=== PATIENT | female | born 1990 | race Caucasian/White ===

== ENCOUNTER 2018-04-11 11:47 | Emergency (ER) | payer BC ==
[2018-04-11] MEDS ORDERED: Albuterol/Ipratropium NEB.SOL* Albuterol 2.5 MG/Ipratropium 0.5 MG 3 ML INH ONE ×2 (11:54→12:56)
[2018-04-11] MEDS ORDERED: NS 0.9% 1000 ML* 1,000 ML IV ONE (12:06)
[2018-04-11] MEDS ORDERED: methylPREDNISolone 125 MG* 2 ML VIAL IV ONE (12:06)
--- NOTE | 2018-04-11 12:08 | ED ---
Shortness of Breath - HPI Summary HPI Summary: Patient is a 27 y/o F presenting to ED with asthma exacerbation, SOB and wheezing. Patient took her rescue inhaler this morning several times with no relief in Sx. It is noted that patient experiences more asthma exacerbation episodes in the winter, nothing else is noted to have aggravated asthma. Patient denies previous hospital admission for asthma, states she was at [facility] last in 2009 for asthma exacerbation episode, at which time she was given prednisone and steroids. She states that present episode is worse than her previous episodes, noting her inhaler typically relieves Sx. In the room, she denies chest pain, sore throat, N/V, congestion, chest pain, and possibility of . No cough. no recent URI PSHx of wisdom teeth removal, patient denies smoking cigarettes, substance usage but reports rare alcohol usage. On triage, pain is denied. Home medications and allergies are reviewed. - History of Current Complaint Chief Complaint: EDAsthma Time Seen by Provider: 04/11/18 11:54 Hx Obtained From: Patient Onset/Duration: Still Present Timing: Constant Current Severity: None - pain denied Dyspnea At: Rest Aggrevating Factors: Nothing Alleviating Factors: Nothing Associated Signs & Symptoms: Cough (Nonproductive), Wheezing - Allergy/Home Medications Allergies/Adverse Reactions: Allergies Allergy/AdvReac Type Severity Reaction Status Date / Time No Known Allergies Allergy Verified 04/11/18 11:52 PMH/Surg Hx/FS Hx/Imm Hx Previously Healthy: Yes Respiratory History: Reports: Hx Asthma Sensory History: Denies: Hx Legally Blind, Hx Deafness Opthamlomology History: Denies: Hx Legally Blind EENT History: Denies: Hx Deafness - Surgical History Surgery Procedure, Year, and Place: wisdom teeth removal Infectious Disease History: No Infectious Disease History: Denies: Traveled Outside the [place] in Last 30 Days - Family History Known Family History: Positive: Non-Contributory - Social History Occupation: Employed Full-time Lives: With Family Alcohol Use: Rare Substance Use Type: Reports: None Smoking Status (MU): Never Smoked Tobacco Review of Systems Positive: Fatigue Eyes: Negative ENT: Negative Negative: Sore Throat Negative: Chest Pain Positive: Shortness Of Breath, Other - wheezing reported, patient denies congestion Negative: Vomiting, Nausea All Other Systems Reviewed And Are Negative: Yes Physical Exam - Summary Physical Exam Summary: Vital Signs Reviewed: Yes A+Ox3, obvious increased WOB Eyes: Conjunctiva Clear, NITHYA. EOM intact and full ENT: Hearing grossly normal TM x 2 clear, mmoist, uvula midline, no exudate, no erythema Neck: Positive: Supple Respiratory: Positive: accessory muscle use, tight aeration throughout - scant exp wheeze, no cough, speaking short sentences Cardiovascular: RRR nl s1, s2 no m/r CBT <2 sec abd soft + BS nt/nd no guarding, no distension Musculoskeletal Exam: TOSCANO x 4 without difficulty Strength Intact, ROM Intact Neurological: Positive: Alert, + sensation throughout Psychological: Positive: Normal Response To Family Skin: Positive: no rash, no ecchymosis Triage Information Reviewed: Yes Vital Signs On Initial Exam: Initial Vitals Temp Pulse Resp BP Pulse Ox 97.2 F 78 16 140/109 100 04/11/18 11:49 04/11/18 11:49 04/11/18 11:49 04/11/18 11:49 04/11/18 11:49 Diagnostics - Vital Signs Vital Signs Temp Pulse Resp BP Pulse Ox 04/11/18 11:49 97.2 F 78 16 140/109 100 - Laboratory Lab Statement: Any lab studies that have been ordered have been reviewed, and results considered in the medical decision making process. - Radiology No standard instances Radiology Interpretation Completed By: Radiologist - Patient Name: RAFY SHELBY Medical Record#: [id number] Ordering Physician: Andrea Dominguez MD Acct.#: [id number] : 1990 Age: 27 Sex: F Location: EMERGENCY DEPARTMENT Exam Date: 04/11/18 1359 ADM Status: REG ER Order Information: CHEST PA & LAT 2 VWS Accession Number: [id number] CPT: 69096 HISTORY: asthma ex, slight ronchi left base s/p neb COMPARISONS: January 06, 2010 VIEWS: 4: Frontal dual-energy and lateral views of the chest. FINDINGS: CARDIOMEDIASTINAL SILHOUETTE: The cardiomediastinal silhouette is normal. KIM: The kim are normal. PLEURA: The costophrenic angles are sharp. No pleural abnormalities are noted. LUNG PARENCHYMA: The lungs are clear. ABDOMEN: The upper abdomen is clear. There is no subphrenic gas. BONES AND SOFT TISSUES: No bone or soft tissue abnormalities are noted. OTHER: None. IMPRESSION: NO ACTIVE CARDIOPULMONARY DISEASE. <Electronically signed by Amadou Rutledge MD in OV> 04/11/181417 Dictated By: Amadou Rutledge MD Dictated Date/Time: 04/11/181417 Transcribed Date/Time: 04/11/181417 Copy to: CC:Andrea Dominguez MD; Shante Negro MD Imaging - [facility] Imaging - [place] [facility] [address] [address] ph [phone]) ph ) ph ([phone]) This report is only to be considered final once signed by the Provider(s ) as displayed in the "<Electronically Signed by >" field (s). Absence of a signature indicates the report is in a draft status and still needs to be finalized. In the event this document was created by someone other than the signing Provider, the individual initiating the document will be listed in the "Entered by:" or "Dictated by:" appiah. 1 of 1 Re-Evaluation - Re-Evaluation First Eval Re-Evaluation Time: 12:18 Change: Improved Comment: Patient with improved aeration at this time, diffuse wheezing is noted. states feeling better. given solumedrol. will give second neb - pt on respiratory protocol - close monitoring and reassess Second Eval Re-Evaluation Time: 12:53 Comment: still feeling well. no accessory muscle use. exp wheeze. will repeat 2nd duoneb Third Eval Re-Evaluation Time: 13:57 Change: Improved Comment: Breathing is improved. feels well. slight rhonci right base. anticipate discharge. pred QD x 4 days. work note. pt has Albuterol refill to [facility]. Pt has aerochamber - inconsistently uses Course/Dx - Course Course Of Treatment: Patient presents to emergency department reporting an asthma exacerbation. Patient states over the last 24-hour she's been feeling more wheezy. Patient's been using her rescue inhaler with little improvement. Patient states she needed to get seen for this. Patient's never been Hospital. Last prednisone and exacerbation requiring even the ED was apparently 6 years ago. Patient states typically she has 3 or 4 episodes a year. Patient states usually an MDI helps. Patient states when or cold makes her symptoms worse. Patient has not recently been sick. Patient states she is not . On exam vital signs reveal tachypnea mild tachycardia and a patient with poor aeration. We'll give DuoNeb and IV cimetidine all with close reassessment. - Diagnoses Provider Diagnoses: Asthma exacerbation Discharge - Sign-Out/Discharge Documenting (check all that apply): Patient Departure - Discharge Plan Condition: Stable Disposition: HOME Prescriptions: predniSONE TAB* [Deltasone TAB*] 50 mg PO DAILY #4 tab Patient Education Materials: Asthma (ED) Forms: *Gen. Provider Communication, *Work Release Referrals: Shante Negro MD [Primary Care Provider] - Additional Instructions: - Take antibiotics as prednisone as prescribed until gone - Use your inhaler with the spacer - 2 puffs every 4 hours today and tomorrow, then every 4 hours as needed - take antibiotics as prescribed until gone -humidify the air in the room where you sleep - Contact your doctor to schedule a follow-up appointment this week. Contact your doctor or return with questions or concerns - Billing Disposition and Condition Condition: STABLE Disposition: Home - Attestation Statements Document Initiated by Nela: Yes Documenting Scribe: MARIA D ADAMS Provider For Whom Nela is Documenting (Include Credential): ANDREA DOMINGUEZ MD Scribe Attestation: MARIA D Posada , scribed for ANDREA DOMINGUEZ MD on 04/11/18 at 1425. Scribe Documentation Reviewed: Yes Provider Attestation: The documentation as recorded by the MARIA D vergara accurately reflects the service I personally performed and the decisions made by me, ANDREA DOMINGUEZ MD Status of Scribe Document: Viewed
[2018-04-11 14:52] VITALS: BP 146/96
== END 2018-04-11 14:41 | disposition home or self-care (01) ==
LOC: ED 11:47
DX: J45.901 Unspecified asthma with (acute) exacerbation (principal)
CPT/HCPCS: 71046; 96361; 96374; 96375; 99282; A9270-GY; J2930

== ENCOUNTER 2018-06-19 07:12 | Emergency (ER) | payer BC ==
[2018-06-19 07:26] VITALS: BP 129/86
--- NOTE | 2018-06-19 07:58 | UC ---
Complaint Female HPI - HPI Summary HPI Summary: 27-year-old woman 27-year-old woman comes in with a chief complaint of burning with urination urinary frequency and urgency for the last day and a half. Patient has had UTIs in the past she states this what it feels like. She's tried Azo which decreased the dysuria some but overall symptoms are getting worse. She does have some suprapubic discomfort especially with urination. Denies any flank pain or other abdominal pain. Her period is due soon she is on control pills and denies any concern of or STI. - History Of Current Complaint Chief Complaint: UCGU Stated Complaint: POSS UTI Time Seen by Provider: 06/19/18 07:47 Hx Last Menstrual Period: 05/22/18 Pain Intensity: 98 - Allergies/Home Medications Allergies/Adverse Reactions: Allergies Allergy/AdvReac Type Severity Reaction Status Date / Time No Known Allergies Allergy Verified 06/19/18 07:26 Home Medications: Home Medications Desogestrel-Ethinyl Estradiol [Isibloom 0.15-30 mg-Mcg] 1 tab PO DAILY WITH MEAL 06/19/18 [History Confirmed 06/19/18] PMH/Surg Hx/FS Hx/Imm Hx Previously Healthy: Yes - Surgical History Surgical History: None Surgery Procedure, Year, and Place: wisdom teeth removal - Family History Known Family History: Positive: Non-Contributory - Social History Alcohol Use: Occasionally Substance Use Type: None Smoking Status (MU): Never Smoked Tobacco Review of Systems All Other Systems Reviewed And Are Negative: Yes Constitutional: Positive: Negative Skin: Positive: Negative Eyes: Positive: Negative ENT: Positive: Negative Respiratory: Positive: Negative Cardiovascular: Positive: Negative Gastrointestinal: Positive: Negative Genitourinary: Positive: Dysuria, Frequency, Urgency. Negative: Vaginal/Penile Discharge Motor: Positive: Negative Neurovascular: Positive: Negative Musculoskeletal: Positive: Negative Neurological: Positive: Negative Psychological: Positive: Negative Is Patient Immunocompromised?: No Physical Exam Triage Information Reviewed: Yes Appearance: Well-Appearing, No Pain Distress, Well-Nourished Vital Signs: Initial Vital Signs Temp 98.5 F 06/19/18 07:21 Pulse 82 06/19/18 07:21 Resp 18 06/19/18 07:21 BP 129/86 06/19/18 07:21 Pulse Ox 98 02/25/19 07:21 Vital Signs Reviewed: Yes Eye Exam: Normal Eyes: Positive: Conjunctiva Clear Neck exam: Normal Respiratory: Positive: Lungs clear, Normal breath sounds, No respiratory distress Cardiovascular: Positive: RRR Abdomen Description: Positive: Nontender, Soft. Negative: CVA Tenderness (R), CVA Tenderness (L) Musculoskeletal Exam: Normal Musculoskeletal: Positive: Strength Intact, ROM Intact Neurological Exam: Normal Neurological: Positive: Alert, Muscle Tone Normal Psychological Exam: Normal Psychological: Positive: Age Appropriate Behavior Skin Exam: Normal Complaint Female Dx - Differential Dx/Diagnosis Provider Diagnosis: UTI (urinary tract infection) Discharge - Sign-Out/Discharge Documenting (check all that apply): Patient Departure All imaging exams completed and their final reports reviewed: No Studies - Discharge Plan Condition: Stable Disposition: HOME Prescriptions: Cephalexin CAP* [Keflex CAP*] 500 mg PO TID #21 cap Patient Education Materials: Urinary Tract Infection in Women (ED) Referrals: Shante Negro MD [Primary Care Provider] - Additional Instructions: FOLLOW UP WITH YOUR DOCTOR IF NOT COMPLETELY IMPROVED. GET RECHECKED FOR ANY WORSENING OF YOUR CONDITION OR QUESTIONS OR CONCERNS. - Billing Disposition and Condition Condition: STABLE Disposition: Home
--- NOTE | 2018-06-21 17:01 | UC ---
- Progress Note Progress Note: 06/21/2018 Urine culture positive for E.Coli Pt Rx Keflex PO. However, Final sensitivity result resistant to Keflex, ampoicillin, Bactrim , Augmentin and Tetracycline. Please call back patient and notify her of results and advise to stop Keflex PO. New Rx for Ciprofloxacin was sent to pharmacy. Thank you Cyndee Morley PA-C Course/Dx - Diagnoses Provider Diagnoses: UTI (urinary tract infection) Discharge - Sign-Out/Discharge Documenting (check all that apply): Patient Departure - d/c home All imaging exams completed and their final reports reviewed: No Studies - Discharge Plan Condition: Stable Disposition: HOME Prescriptions: Cephalexin CAP* [Keflex CAP*] 500 mg PO TID #21 cap Ciprofloxacin TAB* [Cipro 500 MG TAB*] 500 mg PO BID #14 tab Patient Education Materials: Urinary Tract Infection in Women (ED) Referrals: Shante Negro MD [Primary Care Provider] - Additional Instructions: FOLLOW UP WITH YOUR DOCTOR IF NOT COMPLETELY IMPROVED. GET RECHECKED FOR ANY WORSENING OF YOUR CONDITION OR QUESTIONS OR CONCERNS. - Billing Disposition and Condition Condition: STABLE Disposition: Home - Attestation Statements Provider Attestation: I was available for consult. This patient was seen by the NICOLASA. The patient was not presented to, seen by, or examined by me. -Nishant
== END 2018-06-19 08:03 | disposition home or self-care (01) ==
LOC: UCEAST 07:12
DX: N39.0 Urinary tract infection, site not specified (principal); R35.0 Frequency of micturition; R39.15 Urgency of urination
CPT/HCPCS: 87077; 87086; 87186; 99212; G0463

== ENCOUNTER 2018-12-03 15:25 | Emergency (ER) | payer BC ==
[2018-12-03 15:35] VITALS: BP 139/95
--- NOTE | 2018-12-03 15:40 | UC ---
Lower Extremity/Ankle HPI - HPI Summary HPI Summary: 28-year-old female who was standing on the edge of her raised flower bed when she lost her balance and fell twisting her right ankle. She had no other injury. - History of Current Complaint Chief Complaint: UCLowerExtremity Stated Complaint: RT ANKLE INJURY Time Seen by Provider: 12/03/18 15:30 Hx Obtained From: Patient Hx Last Menstrual Period: now ?: No Onset/Duration: Sudden Onset Severity Initially: Moderate Severity Currently: Mild Pain Intensity: 4 Aggravating Factor(s): Standing, Ambulation Alleviating Factor(s): Nothing Able to Bear Weight: Yes - minimally - Allergies/Home Medications Allergies/Adverse Reactions: Allergies Allergy/AdvReac Type Severity Reaction Status Date / Time No Known Allergies Allergy Verified 12/03/18 15:36 Home Medications: Home Medications Albuterol HFA INHALER* [Ventolin HFA Inhaler*] 1 dose INH ONCE PRN 12/03/18 [ History Confirmed 12/03/18] Desogestrel-Ethinyl Estradiol [Isibloom 28 Day Tablet] 1 tab PO DAILY 12/03/18 [ History Confirmed 12/03/18] PMH/Surg Hx/FS Hx/Imm Hx Previously Healthy: Yes - Surgical History Surgical History: None Surgery Procedure, Year, and Place: wisdom teeth removal - Family History Known Family History: Positive: Non-Contributory - Social History Alcohol Use: Occasionally Substance Use Type: None Smoking Status (MU): Never Smoked Tobacco Review of Systems All Other Systems Reviewed And Are Negative: Yes Motor: Positive: Negative Neurovascular: Positive: Negative Musculoskeletal: Positive: Other: - Pain to the lateral right ankle. Neurological: Positive: Negative Psychological: Positive: Negative Is Patient Immunocompromised?: No Physical Exam Triage Information Reviewed: Yes Appearance: Well-Appearing, No Pain Distress, Well-Nourished Vital Signs: Initial Vital Signs Temp 97.7 F 12/03/18 15:33 Pulse 82 12/03/18 15:33 Resp 12 12/03/18 15:33 BP 139/95 12/03/18 15:33 Pulse Ox 100 12/03/18 15:33 Vital Signs Reviewed: Yes Musculoskeletal Exam: Normal Musculoskeletal: Positive: Strength Intact, ROM Intact, No Edema, Other: - Mild pain on palpation to the lateral right ankle. No deformity, erythema, bruising or swelling is noted. Good peripheral pulses neuro sensation and capillary refill. Neurological Exam: Normal Neurological: Positive: Alert, Muscle Tone Normal Psychological Exam: Normal Skin Exam: Normal Lower Extremity Course/Dx - Course Course Of Treatment: x-ray: REPORT AND IMPRESSION: #. Negative for fracture or articular malalignment. #. Small calcification inferior to the medial malleolus may represent an accessory ossicle or sequela of previous injury. #. Preserved joint spaces. #. Unremarkable soft tissue contours Patient states that she is able to wear weight but minimally. She's given appear crutches and an Wally bandage and follow-up with the orthopedist in 4-5 days if no improvement. - Differential Dx/Diagnosis Provider Diagnosis: Right ankle sprain Discharge - Sign-Out/Discharge Documenting (check all that apply): Patient Departure All imaging exams completed and their final reports reviewed: Yes - Discharge Plan Condition: Fair Disposition: HOME Patient Education Materials: Ankle Sprain (DC) Forms: *Work Release Referrals: Brennan Yap MD [Medical Doctor] - Shante Negro MD [Primary Care Provider] - Additional Instructions: Elevate and apply ice intermittently as much as possible over the next day or 2. Tylenol or Motrin for pain. Follow-up with the orthopedist if you continue to have pain with no improvement or worsening symptoms over the next 3 or 4 days. May ambulate as pain permits. - Billing Disposition and Condition Condition: FAIR Disposition: Home - Attestation Statements Provider Attestation: I was available for consult. This patient was seen by the NICOLASA. The patient was not presented to, seen by, or examined by me. -Nishant
--- NOTE | 2018-12-03 17:15 | UC ---
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 Course/Dx - Diagnoses Provider Diagnoses: Right ankle sprain Discharge - Sign-Out/Discharge Documenting (check all that apply): Post-Discharge Follow Up All imaging exams completed and their final reports reviewed: Yes - Discharge Plan Condition: Fair Disposition: HOME Patient Education Materials: Ankle Sprain (DC) Forms: *Work Release Referrals: Brennan Yap MD [Medical Doctor] - Shante Negro MD [Primary Care Provider] - Additional Instructions: Elevate and apply ice intermittently as much as possible over the next day or 2. Tylenol or Motrin for pain. Follow-up with the orthopedist if you continue to have pain with no improvement or worsening symptoms over the next 3 or 4 days. May ambulate as pain permits. - Billing Disposition and Condition Condition: FAIR Disposition: Home - Attestation Statements Provider Attestation: I was available for consult. This patient was seen by the NICOLASA. The patient was not presented to, seen by, or examined by me. -Nishant
== END 2018-12-03 16:43 | disposition home or self-care (01) ==
LOC: UCEAST 15:25
DX: S93.401A Sprain of unspecified ligament of right ankle, initial encounter (principal); W18.30XA Fall on same level, unspecified, initial encounter; Y92.017 Garden or yard in single-family (private) house as the place of occurrence of the external cause
CPT/HCPCS: 99213; G0463